=== PATIENT | female | born 1935 | race Caucasian/White ===

== ENCOUNTER 2020-03-28 14:40 | Emergency (ER) | payer MEDICARE, BC ==
[2020-03-28] MEDS ORDERED: Sodium Chloride 0.9% 10 ML Syringe FLUSH PRN (14:47)
[2020-03-28] MEDS ORDERED: Ondansetron 4 MG/2 ML SDV IVPUSH ONE (14:56)
[2020-03-28] MEDS ORDERED: Sodium Chloride 0.9% 1,000 ML IV STA (15:02)
[2020-03-28] MEDS ORDERED: LORazepam 2 MG/ML SDV IVPUSH ONE ×2 (15:52→16:49)
[2020-03-28] MEDS ORDERED: Metoclopramide 10 MG/2 ML SDV IVPUSH ONE ×2 (15:52→16:49)
[2020-03-28] MEDS ORDERED: Famotidine 20 MG/2 ML SDV IVPUSH ONE (15:56)
--- NOTE | 2020-03-28 16:08 | EDM.PDOC ---
ED HPI GENERAL MEDICAL PROBLEM - General Chief Complaint: Gastrointestinal Problem Stated Complaint: [facility] Time Seen by Provider: 03/28/20 14:42 Source of Information: Reports: Patient, RN Notes Reviewed History Limitations: Reports: No Limitations - History of Present Illness INITIAL COMMENTS - FREE TEXT/NARRATIVE: Patient is an 85-year-old female presenting to the emergency department via [facility] with complaints of acute onset of dizziness, headache, nausea, and vomiting approximately 2 hours prior to coming to ER. Symptoms began about 1 hour after eating lunch. States she ate brisket and mashed potatoes. She denies any significant abdominal pain but states that she does have some generalized epigastric discomfort that worsens with vomiting. She had 3 episodes of vomiting at home and one since arrival to the ER. She has history of appendectomy but does still have her gallbladder. Denies any right upper quadrant abdominal discomfort. Denies any recent head injuries and she has had no known sick contacts. She describes the dizziness as a feeling of the room spinning and states it is worse with position changes. Denies any ear pain or pressure. - Related Data Allergies Allergy/AdvReac Type Severity Reaction Status Date / Time Dairy Products Allergy Indigestion Verified 03/28/20 14:46 Home Meds: Home Meds Calcium Carb, Citrate/Vit D3 [Calcium + D3 ER Tablet] 1 tab PO ASDIRECTED 03/28/20 [History] Cefdinir [Omnicef] 300 mg PO BID #13 cap 03/28/20 [Rx] Cholecalciferol (Vitamin D3) [Vitamin D3] 5,000 unit PO DAILY 03/28/20 [History] Folic Acid/Vit B Complex and C [Super B Complex Tablet] 400 mcg PO DAILY 03/28/20 [History] Magnesium 250 mg PO ASDIRECTED 03/28/20 [History] Meclizine [Antivert] 25 mg PO Q6H PRN #20 tab 03/28/20 [Rx] Metoprolol Succinate 25 mg PO DAILY 03/28/20 [History] Multivitamin [One-Daily Multi-Vitamin] 1 tab PO DAILY 03/28/20 [History] Ondansetron [Zofran ODT] 4 mg PO Q6H PRN #10 tab.dis 03/28/20 [Rx] Valsartan/Hydrochlorothiazide [Valsartan-Hctz 160-12.5 mg Tab] 1 tab PO DAILY 03/28/20 [History] amLODIPine [Norvasc] 5 mg PO DAILY 03/28/20 [History] Past Medical History Cardiovascular History: Reports: Hypertension - Past Surgical History GI Surgical History: Reports: Appendectomy Social & Family History - Tobacco Use Tobacco Use Status *Q: Never Tobacco User Second Hand Smoke Exposure: No - Caffeine Use Caffeine Use: Reports: None - Recreational Drug Use Recreational Drug Use: No ED ROS GENERAL - Review of Systems Review Of Systems: See Below Constitutional: Reports: No Symptoms. Denies: Fever, Chills, Weakness HEENT: Reports: Vertigo Respiratory: Reports: No Symptoms. Denies: Shortness of Breath, Cough Cardiovascular: Reports: No Symptoms, Lightheadedness. Denies: Chest Pain, Dyspnea on Exertion Endocrine: Reports: No Symptoms GI/Abdominal: Reports: Abdominal Pain (Epigastric discomfort), Nausea, Vomiting. Denies: Diarrhea : Reports: No Symptoms Musculoskeletal: Reports: No Symptoms Skin: Reports: No Symptoms Neurological: Reports: Dizziness, Headache. Denies: Syncope Psychiatric: Reports: No Symptoms Hematologic/Lymphatic: Reports: No Symptoms Immunologic: Reports: No Symptoms ED EXAM, GI/ABD - Physical Exam Exam: See Below General Appearance: Alert, WD/WN, No Apparent Distress Eyes: Bilateral: Normal Appearance Ears: Normal External Exam, Normal Canal, Hearing Grossly Normal, Normal TMs Head: Atraumatic, Normocephalic Respiratory/Chest: No Respiratory Distress, Lungs Clear, Normal Breath Sounds, No Accessory Muscle Use, Chest Non-Tender Cardiovascular: Normal Peripheral Pulses, Regular Rate, Rhythm, No Edema, No Gallop, No JVD, No Murmur, No Rub GI/Abdominal Exam: Normal Bowel Sounds, Soft, Non-Tender, No Organomegaly, No Distention, No Abnormal Bruit, No Mass, Pelvis Stable Neurological: Alert, Oriented, CN II-XII Intact, Normal Cognition, Normal Gait, Normal Reflexes, No Motor/Sensory Deficits Psychiatric: Normal Affect, Normal Mood Skin Exam: Warm, Dry, Intact, Normal Color, No Rash #1 Interpretation EKG Date: 03/28/20 Time: 14:56 Rhythm: NSR Rate (Beats/Min): 61 [place]: LAD-Left [place] Deviation P-Wave: Present QRS: Normal ST-T: Normal QT: Normal Course - Vital Signs Last Recorded V/S: Last Vital Signs Temp 97 F 03/28/20 14:44 Pulse 76 03/28/20 18:24 Resp 16 03/28/20 18:24 BP 116/46 L 03/28/20 18:24 Pulse Ox 96 03/28/20 18:24 - Orders/Labs/Meds Labs: Laboratory Tests 03/28/20 03/28/20 03/28/20 Range/Units 15:14 15:14 15:14 WBC 5.05 (3.98-10.04) K/mm3 RBC 3.84 L (3.98-5.22) M/mm3 Hgb 11.6 (11.2-15.7) gm/dl Hct 36.4 (34.1-44.9) % MCV 94.8 (79.4-94.8) fl MCH 30.2 (25.6-32.2) pg MCHC 31.9 L (32.2-35.5) g/dl RDW Std Deviation 51.0 H (36.4-46.3) fL Plt Count 246 (182-369) K/mm3 MPV 11.3 (9.4-12.3) fl Neut % (Auto) 62.9 (34.0-71.1) % Lymph % (Auto) 23.2 (19.3-51.7) % [place] % (Auto) 9.5 (4.7-12.5) % Eos % (Auto) 2.6 (0.7-5.8) Baso % (Auto) 1.8 H (0.1-1.2) % Neut # (Auto) 3.18 (1.56-6.13) K/mm3 Lymph # (Auto) 1.17 L (1.18-3.74) K/mm3 Thayer # (Auto) 0.48 H (0.24-0.36) K/mm3 Eos # (Auto) 0.13 (0.04-0.36) K/mm3 Baso # (Auto) 0.09 H (0.01-0.08) K/mm3 Sodium 141 (136-145) mEq/L Potassium 3.8 (3.5-5.1) mEq/L Chloride 102 (98-107) mEq/L Carbon Dioxide 27 (21-32) mEq/L Anion Gap 15.8 H (5-15) BUN 25 H (7-18) mg/dL Creatinine 1.9 H (0.55-1.02) mg/dL Est Cr Clr Drug Dosing TNP Estimated GFR (MDRD) 25 (>60) mL/min BUN/Creatinine Ratio 13.2 L (14-18) Glucose 114 (83-115) mg/dL Calcium 9.8 (8.5-10.1) mg/dL Total Bilirubin 0.2 (0.2-1.0) mg/dL AST 18 (15-37) U/L ALT 24 (14-59) U/L Alkaline Phosphatase 58 (46-116) U/L Troponin I < 0.017 (0.00-0.056) ng/mL C-Reactive Protein 0.3 (<1.0) mg/dL Total Protein 6.7 (6.4-8.2) g/dl Albumin 3.4 (3.4-5.0) g/dl Globulin 3.3 gm/dL Albumin/Globulin Ratio 1.0 (1-2) Lipase 173 (73-393) U/L Urine Color (Yellow) Urine Appearance (Clear) Urine pH (5.0-8.0) Ur Specific [place] (1.005-1.030) Urine Protein (Negative) Urine Glucose (UA) (Negative) Urine Ketones (Negative) Urine Occult Blood (Negative) Urine Nitrite (Negative) Urine Bilirubin (Negative) Urine Urobilinogen (0.2-1.0) Ur Leukocyte Esterase (Negative) Urine RBC (0-5) /hpf Urine WBC (0-5) /hpf Ur Squamous Epith Cells (0-5) /hpf Amorphous Sediment (NOT SEEN) /hpf Urine Bacteria (FEW) /hpf Urine Mucus (FEW) /hpf 03/28/20 Range/Units 16:49 WBC (3.98-10.04) K/mm3 RBC (3.98-5.22) M/mm3 Hgb (11.2-15.7) gm/dl Hct (34.1-44.9) % MCV (79.4-94.8) fl MCH (25.6-32.2) pg MCHC (32.2-35.5) g/dl RDW Std Deviation (36.4-46.3) fL Plt Count (182-369) K/mm3 MPV (9.4-12.3) fl Neut % (Auto) (34.0-71.1) % Lymph % (Auto) (19.3-51.7) % Thayer % (Auto) (4.7-12.5) % Eos % (Auto) (0.7-5.8) Baso % (Auto) (0.1-1.2) % Neut # (Auto) (1.56-6.13) K/mm3 Lymph # (Auto) (1.18-3.74) K/mm3 [place]ayer # (Auto) (0.24-0.36) K/mm3 Eos # (Auto) (0.04-0.36) K/mm3 Baso # (Auto) (0.01-0.08) K/mm3 Sodium (136-145) mEq/L Potassium (3.5-5.1) mEq/L Chloride (98-107) mEq/L Carbon Dioxide (21-32) mEq/L Anion Gap (5-15) BUN (7-18) mg/dL Creatinine (0.55-1.02) mg/dL Est Cr Clr Drug Dosing Estimated GFR (MDRD) (>60) mL/min BUN/Creatinine Ratio (14-18) Glucose (83-115) mg/dL Calcium (8.5-10.1) mg/dL Total Bilirubin (0.2-1.0) mg/dL AST (15-37) U/L ALT (14-59) U/L Alkaline Phosphatase (46-116) U/L Troponin I (0.00-0.056) ng/mL C-Reactive Protein (<1.0) mg/dL Total Protein (6.4-8.2) g/dl Albumin (3.4-5.0) g/dl Globulin gm/dL Albumin/Globulin Ratio (1-2) Lipase (73-393) U/L Urine Color Yellow (Yellow) Urine Appearance Clear (Clear) Urine pH 7.5 (5.0-8.0) Ur Specific [place] 1.020 (1.005-1.030) Urine Protein Negative (Negative) Urine Glucose (UA) Negative (Negative) Urine Ketones Negative (Negative) Urine Occult Blood Negative (Negative) Urine Nitrite Negative (Negative) Urine Bilirubin Negative (Negative) Urine Urobilinogen 0.2 (0.2-1.0) Ur Leukocyte Esterase 1+ H (Negative) Urine RBC 0-5 (0-5) /hpf Urine WBC 5-10 H (0-5) /hpf Ur Squamous Epith Cells 0-5 (0-5) /hpf Amorphous Sediment Many H (NOT SEEN) /hpf Urine Bacteria Moderate H (FEW) /hpf Urine Mucus Not seen (FEW) /hpf Meds: Medications Discontinued Medications Generic Name Dose Route Start Last Admin Trade Name Lloyd PRN Reason Stop Dose Admin Cefdinir 300 mg 03/28/20 18:06 03/28/20 18:19 Omnicef PO 03/28/20 18:07 300 mg ONETIME ONE Administration Famotidine 20 mg 03/28/20 15:56 03/28/20 16:13 Pepcid IVPUSH 03/28/20 15:57 20 mg ONETIME ONE Administration Sodium Chloride 1,000 mls @ 250 mls/hr 03/28/20 15:02 03/28/20 15:15 Normal Saline IV 03/28/20 19:01 250 mls/hr NOW STA Administration Lorazepam 0.25 mg 03/28/20 15:52 03/28/20 16:13 Ativan IVPUSH 03/28/20 15:53 0.25 mg ONETIME ONE Administration Lorazepam 0.25 mg 03/28/20 16:49 03/28/20 17:08 Ativan IVPUSH 03/28/20 16:50 0.25 mg ONETIME ONE Administration Meclizine HCl 25 mg 03/28/20 15:50 Antivert PO 03/28/20 15:51 ONETIME ONE Metoclopramide HCl 5 mg 03/28/20 15:52 03/28/20 16:12 Reglan IVPUSH 03/28/20 15:53 5 mg ONETIME ONE Administration Metoclopramide HCl 5 mg 03/28/20 16:49 03/28/20 17:08 Reglan IVPUSH 03/28/20 16:50 5 mg ONETIME ONE Administration Ondansetron HCl 4 mg 03/28/20 14:56 03/28/20 15:01 Zofran IVPUSH 03/28/20 14:57 4 mg ONETIME ONE Administration Sodium Chloride 10 ml 03/28/20 14:47 03/28/20 14:55 Saline Flush FLUSH 10 ml ASDIRECTED PRN Administration Keep Vein Open - Re-Assessments/Exams Free Text/Narrative Re-Assessment/Exam: Patient is an 85-year-old female presenting to the emergency department with complaints of acute onset of dizziness, epigastric discomfort, nausea, and vomiting. On exam, she does have some mild epigastric tenderness, however, she has no tenderness in the right upper quadrant. Neurologic exam is found to be normal, however, she describes a sensation of vertigo which worsens with position changes. She also has headache. I have ordered a CT scan of the head, CBC, CMP, CRP, lipase, urinalysis. Given her episodes of vomiting, have ordered NS to be infused at 250 mils per hour and Zofran 4 mg IV. 03/28/20 16:20 Patient continues to complain of dizziness with nausea. I have ordered Reglan 5 mg IV as well as lorazepam 0.25 mg IV and famotidine [address] scan of the head and hematology are grossly unremarkable. Urinalysis is pending. 03/28/20 16:41 Patient is feeling much better after the Ativan and Reglan. Nursing staff will assist her to get up and ambulate and provide urine sample. 03/28/20 16:49 Staff reports that patient's dizziness and nausea returned upon sitting. She was able to get to the compartment commode, however was not confident that she would able to walk. I have ordered an additional Reglan 5 mg and Ativan 0.25 mg IV. 03/28/20 17:58 Urinalysis is significant for 1+ leukocyte esterase, 5-10 WBCs, and moderate bacteria. Patient states that she gets nauseous from Macrobid. I will start her on a course of cefdinir. Urine has been sent for culture. Patient was able to get up and walk without difficulty after the second dose of Reglan and Ativan. We will discharge her home with prescription for Zofran and Meclizine. Discussed that if symptoms do not improve by Monday, she should follow-up with her primary care provider to discuss physical therapy referral. Discharge instructions as documented. Departure - Departure Time of Disposition: 18:07 Disposition: Home, Self-Care 01 Condition: Good Clinical Impression: Vertigo UTI (urinary tract infection) Qualifiers: Urinary tract infection type: acute cystitis Hematuria presence: without hematuria Qualified Code(s): N30.00 - Acute cystitis without hematuria - Discharge Information *PRESCRIPTION DRUG MONITORING PROGRAM REVIEWED*: No *COPY OF PRESCRIPTION DRUG MONITORING REPORT IN PATIENT CHEL: No Prescriptions: Meclizine [Antivert] 25 mg PO Q6H PRN #20 tab PRN Reason: Dizziness Cefdinir [Omnicef] 300 mg PO BID #13 cap Ondansetron [Zofran ODT] 4 mg PO Q6H PRN #10 tab.dis PRN Reason: Nausea/Vomiting Instructions: Vertigo, [id number], Urinary Tract Infection, Adult Referrals: Joseph Webster MD [Ordering Only Provider] - Forms: ED Department Discharge Additional Instructions: You were seen in the emergency department today for headache, dizziness, and vomiting. Work-up included blood work, urinalysis, and a CT scan of your head. Results your work-up were found to be overall normal with the exception of a mild urinary tract infection. While in the ER, you received IV fluids, as well as medications for the treatment of vertigo. This did significantly improve your symptoms. You been started on cefdinir for treatment of urinary tract infection. First dose was given in the emergency department. A prescription for cefdinir, meclizine, and Zofran has been sent to [facility]. Take these medications as prescribed. If you continue to experience symptoms of dizziness and nausea by Monday, recommend follow-up with your primary care provider to discuss a referral to physical therapy as needed. If your symptoms should worsen in any way over the weekend, please not hesitate to return to the [facility] department. Sepsis Event Note (ED) - Evaluation Sepsis Screening Result: No Definite Risk
--- NOTE | 2020-03-28 16:12 | CT ---
Head CT Technique: Multiple axial sections through the brain were obtained. Reconstructed coronal and sagittal images were obtained. Comparison: No prior intracranial imaging is available. Findings: Ventricles along with basal cisterns and sulci over the convexities are mildly prominent. Very minimal areas of diminished density are noted within the basal ganglia and periventricular white matter which is compatible with minimal small vessel ischemic demyelination change. No other abnormal parenchymal densities are seen. No evidence of intracranial hemorrhage. No midline shift or mass-effect is seen. Bone window settings were reviewed. Visualized mastoid sinuses and paranasal sinuses show nothing acute. Vascular calcification is seen within the carotid siphon. No acute calvarial finding is seen. Impression: 1. Senescent change as noted above. 2. Nothing acute is appreciated on noncontrast head CT exam. Diagnostic code #2
[2020-03-28] MEDS ORDERED: Cefdinir 300 MG Cap PO ONE (18:06)
== END 2020-03-28 18:24 | disposition home or self-care (01) ==
LOC: JD.ED 14:40
DX: R42 Dizziness and giddiness (principal); N30.00 Acute cystitis without hematuria; I10 Essential (primary) hypertension; Z79.899 Other long term (current) drug therapy; Z91.011 Allergy to milk products
CPT/HCPCS: 36415; 70450; 80053; 81001; 83690; 84484; 85025; 86140; 87086; 93005; 96374; 96375; 96376; 99284; A9270; J2060; J2405; J2765; J3490; J7030; 93010

== ENCOUNTER 2022-02-15 10:32 | Emergency (ER) | payer MEDICARE, BC ==
[2022-02-15 12:35] LABS: CORONAVIRUS COVID-19 NAA NEGATIVE (NEGATIVE)
== END 2022-02-15 13:05 | disposition home or self-care (01) ==
LOC: JD.ED 10:32 → EDBD 10:32 → JD.ED 13:05
DX: R07.89 Other chest pain (principal); I10 Essential (primary) hypertension; I44.0 Atrioventricular block, first degree; Z91.011 Allergy to milk products; Z79.899 Other long term (current) drug therapy; Z20.822 Contact with and (suspected) exposure to COVID-19
CPT/HCPCS: 0241U; 36415; 71045; 80053; 84484; 85025; 85379; 85610; 85730; 93005; 99285

== ENCOUNTER 2022-12-03 15:01 | Emergency (ER) | payer MEDICARE, BC ==
[2022-12-03] MEDS ORDERED: Sodium Chloride 0.9% 10 ML Syringe FLUSH PRN (15:36)
[2022-12-03] MEDS ORDERED: ceFAZolin 1 GM in Sodium Chloride 0.9% 50 ML IV ONE (15:37)
[2022-12-03] MEDS ORDERED: Dextrose 5%-0.9% NaCl 1,000 ML IV SCH (15:45)
[2022-12-03] MEDS ORDERED: Lidocaine 1% 10 ML MDV INJECT ONE (16:11)
[2022-12-03] MEDS ORDERED: Propofol 200 MG/20 ML SDV IVPUSH ONE (16:12)
[2022-12-03] MEDS ORDERED: Metoclopramide 10 MG/2 ML SDV ONE (16:12)
[2022-12-03] MEDS ORDERED: Propofol 200 MG/20 ML SDV ONE (16:12)
== END 2022-12-03 19:35 | disposition home or self-care (01) ==
LOC: JD.ED 15:01
DX: S52.501A Unspecified fracture of the lower end of right radius, initial encounter for closed fracture (principal); S52.91XA Unspecified fracture of right forearm, initial encounter for closed fracture; I10 Essential (primary) hypertension; Z91.011 Allergy to milk products; X58.XXXA Exposure to other specified factors, initial encounter
CPT/HCPCS: 25605; 73100; 73110; 96361; 96365; 99152; 99283; J0690; J2704; J3490; J7042; 12001; 25505; 99153